=== PATIENT | female | born 1995 | race African-American/Black ===

== ENCOUNTER 2016-10-30 14:34 | Emergency (ER) | payer MEDICAID ==
[~2016-10-30] VITALS: Ht 162.6 cm; Wt 68.0 kg
[2016-10-30 14:39] VITALS: BP 122/79; PULSE 74; RESP 15; TEMP 98.1; O2SAT 96
--- NOTE | 2016-10-30 16:19 | PD ---
HPI Chief Complaint: [employer] Problem/Complaint Time Seen by Provider: 16:10 Travel History International Travel<30 days: No Contact w/Intl Traveler<30days: No Traveled to known affect area: No History of Present Illness HPI 21-year-old female presents for evaluation of vaginal irritation, itchiness, discharge. Symptoms started 3 weeks ago. She thought that she may have a yeast infection and so she has been using [id number] antifungal creams but symptoms persisted which prompted evaluation. She reports that she has never been sexually active. She denies any dysuria, increased urinary frequency or hesitancy, abdominal pain, nausea or vomiting, fevers, flank pain. No other complaints. PFSH Past Medical History Medical History: Denies Significant Hx ?: Unknown LMP: AUG 2016 Social History Alcohol Use: No Tobacco Use: No Allergies-Medications (Allergen,Severity, Reaction): Coded Allergies: No Known Allergies (Unverified , 10/30/16) Reported Meds & Prescriptions Reported Meds & Active Scripts Active No Active Prescriptions or Reported Medications Review of Systems Except as stated in HPI: all other systems reviewed are Neg Physical Exam Narrative GENERAL: Well-developed well-nourished female in no acute distress SKIN: Warm and dry. HEAD: Atraumatic. Normocephalic. EYES: Pupils equal and round. No scleral icterus. No injection or drainage. ENT: No nasal bleeding or discharge. Mucous membranes pink and moist. NECK: Trachea midline. No JVD. CARDIOVASCULAR: Regular rate and rhythm. No murmur appreciated. RESPIRATORY: No accessory muscle use. Clear to auscultation. Breath sounds equal bilaterally. GASTROINTESTINAL: Abdomen soft, non-tender, nondistended. Pelvic examination performed in the presence of a female nurse: There is some thick white vaginal discharge in the vaginal canal. There is no cervical motion tenderness, adnexal tenderness. Data Data Last Documented VS Vital Signs Date Time Temp Pulse Resp B/P Pulse Ox O2 Delivery O2 Flow Rate FiO2 10/30/16 14:39 98.1 74 15 122/79 96 Orders Gc And Chlamydia Pcr (10/30/16 16:16) Wet Prep Profile (10/30/16 16:16) Ed Urine Pregnancytest Poc (10/30/16 16:16) Labs Laboratory Tests Test 10/30/16 16:25 Clue Cells (Wet Prep) NONE SEEN Vaginal Trichomonas (Wet Prep) NONE SEEN Vaginal Yeast (Wet Prep) NONE SEEN MDM Medical Decision Making Medical Screen Exam Complete: Yes Emergency Medical Condition: Yes Medical Record Reviewed: Yes Differential Diagnosis Bacterial vaginosis, candidiasis, cervicitis, trichomoniasis Narrative Course 21-year-old female with 3 weeks of vaginal itching, irritation, discharge. She reports she has never been sexually active. She has been using over-the- counter antifungal creams but symptoms persist. I offered the patient a choice of examination with wet prep, GC probe versus empiric treatment for candidiasis vaginitis versus bacterial vaginosis and she would prefer pelvic examination. Therefore pelvic examination is performed and wet prep, GC probe and urine test were ordered. The patient's wet prep and urine test were negative but given the examination findings of white malodorous vaginal discharge I'm going to treat the patient empirically for bacterial vaginosis versus vaginitis with single dose of fluconazole and 70 course of Flagyl. Diagnosis Primary Impression: Vaginal discharge Additional Instructions: Medication as prescribed. Follow-up with primary care physician as needed. Return for any emergent medical conditions. Med/Other Pt SpecificInfo: Prescription(s) given Scripts Metronidazole (Flagyl)500 Mg Oik000 Mg PO BID 7 Days Ref 0 Prov:Kehinde Bill MD 10/30/16 Fluconazole 150 Mg [id number] Mg PO ONCE #1 TAB Ref 0 Prov:Kehinde Bill MD 10/30/16 Disposition: 01 DISCHARGE HOME Condition: Stable Nacho Nur Oct 30, 2016 16:19
[2016-10-30] MEDS ORDERED: FLUC150T PO (17:09)
[2016-10-30] MEDS ORDERED: METR-1 PO (17:09)
[2016-10-30 18:32] LABS: CHLAMYDIA PCR NOT DETECTED (NOT DETECT); NEISSERIA PCR NOT DETECTED (NOT DETECT)
== END 2016-10-30 17:24 | disposition home or self-care (01) ==
LOC: NETRI 14:34
DX: N89.8 Other specified noninflammatory disorders of vagina (principal)
CPT/HCPCS: 84703; 87210; 87491; 87591; 99283

== ENCOUNTER 2017-10-06 15:20 | Emergency (ER) | payer SELFPAY ==
[~2017-10-06] VITALS: Ht 162.6 cm; Wt 77.3 kg
[~2017-10-06 15:20] MED LIST: FLUC150T PO; METR-1 PO
[2017-10-06 15:22] VITALS: BP 128/72; PULSE 79; RESP 14; TEMP 97.5; O2SAT 97
[2017-10-06] MEDS ORDERED: ONDANSETRON HCL 4 MG/2 ML VIAL IM ONE (16:00)
[2017-10-06 16:44] LABS: AUTOMATED NEUTROPHIL # 3.3 TH/MM3 (1.8-7.7); BASOPHIL # 0.1 TH/MM3 (0-0.2); BASOPHIL % 1.6 % (0.0-2.0); EOSINOPHIL % 0.7 % (0.0-4.0); HEMOGLOBIN 14.2 GM/DL (11.6-15.3); LYMPH % 27.1 % (9.0-44.0); LYMPHOCYTE # 1.3 TH/MM3 (1.0-4.8); MEAN CORPUSCULAR HEMOGLOBIN 27.8 PG (27.0-34.0); MEAN CORPUSCULAR HGB CONC 33.1 % (32.0-36.0); MEAN PLATELET VOLUME 8.4 FL (7.0-11.0); MONO % 4.7 % (0.0-8.0); MONOCYTE # 0.2 TH/MM3 (0-0.9); NEUT % 65.9 % (16.0-70.0); PLATELET COUNT 280 TH/MM3 (150-450); RED BLOOD COUNT 5.12 MIL/MM3 (4.00-5.30); RED CELL DISTRIBUTION WIDTH 14.1 % (11.6-17.2)
--- NOTE | 2017-10-06 16:56 | PD ---
HPI Chief Complaint: GI Complaint Time Seen by Provider: 16:55 Travel History International Travel<30 days: No Contact w/Intl Traveler<30days: No Traveled to known affect area: No History of Present Illness HPI 22-year-old Afro-[place] female presents the emergency department with sudden onset abdominal pain, cramping, and nausea with vomiting since awakening this morning. Patient denies fever but has had the chills. She's had decreased urine output. Patient denies . Patient has no upper respiratory symptoms. No cough or chest pain. Patient denies diarrhea. Pain is diffuse. Patient admits to going out to dinner with her friend for her birthday republican last evening and having excessive amount of alcohol. Not recall much alcohol she drank. She has no known drug allergies. Labs ordered and triage including CBC, CMP, urinalysis, and urine which was negative. PFSH Past Medical History ?: Not Social History Alcohol Use: No Tobacco Use: No Allergies-Medications (Allergen,Severity, Reaction): Coded Allergies: No Known Allergies (Unverified Adverse Reaction, Unknown, 10/06/17) Reported Meds & Prescriptions Reported Meds & Active Scripts Active Zofran (Ondansetron HCl) 4 Mg Tab 4 Mg PO Q6HR PRN Review of Systems Except as stated in HPI: all other systems reviewed are Neg General / Constitutional: Positive: Chills, No: Fever Eyes: No: Visual changes HENT: No: Headaches Cardiovascular: No: Chest Pain or Discomfort Respiratory: No: Shortness of Breath Gastrointestinal: Positive: Nausea, Vomiting, Abdominal Pain, Loss of Appetite , No: Diarrhea, Hematemesis, Hematochezia, Constipation, Indigestion, Dysphagia Genitourinary: Positive: Decreased Urinary Output, No: Urgency, Frequency, Dysuria, Discharge, Vaginal Bleeding Musculoskeletal: No: Pain Skin: No Rash Neurologic: No: Weakness Psychiatric: No: Depression Endocrine: No: Polydipsia Hematologic/Lymphatic: No: Easy Bruising Physical Exam Narrative GENERAL: Patient appears in mild to moderate distress. SKIN: Warm and dry. Normal color. Decreased turgor. HEAD: Atraumatic. Normocephalic. EYES: Pupils equal and round. No scleral icterus. No injection or drainage. ENT: No nasal bleeding or discharge. Mucous membranes pink and somewhat dry. Pharynx is clear. Airway is patent. NECK: Trachea midline. No JVD. Supple and nontender. CARDIOVASCULAR: Regular rate and rhythm. RESPIRATORY: No accessory muscle use. Clear to auscultation. Breath sounds equal bilaterally. GASTROINTESTINAL: Abdomen soft, mild diffuse tenderness, nondistended. No point tenderness or rebound. No CVA tenderness. Hepatic and splenic margins not palpable. MUSCULOSKELETAL: Extremities without clubbing, cyanosis, or edema. No obvious deformities. NEUROLOGICAL: Awake and alert. No obvious cranial nerve deficits. Motor grossly within normal limits. Five out of 5 muscle strength in the arms and legs. Normal speech. PSYCHIATRIC: Appropriate mood and affect; insight and judgment normal. Data Data Last Documented VS Vital Signs Date Time Temp Pulse Resp B/P (MAP) Pulse Ox O2 Delivery O2 Flow Rate FiO2 10/06/17 17:26 74 15 124/77 (93) 97 Room Air 10/06/17 15:22 97.5 Orders Orders Complete Blood Count With Diff (10/06/17 15:36) Comprehensive Metabolic Panel (10/06/17 15:36) Lipase (10/06/17 15:36) Urinalysis - C+S If Indicated (10/06/17 15:36) Ed Urine Pregnancytest Poc (10/06/17 15:36) Ondansetron Inj (Zofran Inj) (10/06/17 16:00) Iv Access Insert/Monitor (10/06/17 17:01) Ecg Monitoring (10/06/17 17:01) Oximetry (10/06/17 17:01) Ondansetron Inj (Zofran Inj) (10/06/17 17:15) Sodium Chlor 0.9% 1000 Ml Inj (Ns 1000 M (10/06/17 17:01) Sodium Chloride 0.9% Flush (Ns Flush) (10/06/17 17:15) Famotidine Inj (Pepcid Inj) (10/06/17 17:15) Influenzae A/B Antigen (10/06/17 17:01) Labs Laboratory Tests Test 10/06/17 16:01 White Blood Count 5.0 TH/MM3 Red Blood Count 5.12 MIL/MM3 Hemoglobin 14.2 GM/DL Hematocrit 43.0 % Mean Corpuscular Volume 84.0 FL Mean Corpuscular Hemoglobin 27.8 PG Mean Corpuscular Hemoglobin Concent 33.1 % Red Cell Distribution Width 14.1 % Platelet Count 280 TH/MM3 Mean Platelet Volume 8.4 FL Neutrophils (%) (Auto) 65.9 % Lymphocytes (%) (Auto) 27.1 % Monocytes (%) (Auto) 4.7 % Eosinophils (%) (Auto) 0.7 % Basophils (%) (Auto) 1.6 % Neutrophils # (Auto) 3.3 TH/MM3 Lymphocytes # (Auto) 1.3 TH/MM3 Monocytes # (Auto) 0.2 TH/MM3 Eosinophils # (Auto) 0.0 TH/MM3 Basophils # (Auto) 0.1 TH/MM3 CBC Comment DIFF FINAL Differential Comment Urine Color YELLOW Urine Turbidity HAZY Urine pH 7.5 Urine Specific [place] 1.021 Urine Protein 30 mg/dL Urine Glucose (UA) NEG mg/dL Urine Ketones NEG mg/dL Urine Occult Blood SMALL Urine Nitrite NEG Urine Bilirubin NEG Urine Urobilinogen LESS THAN 2.0 MG/DL Urine Leukocyte Esterase NEG Urine RBC 2 /hpf Urine WBC 3 /hpf Urine Squamous Epithelial Cells 3 /hpf Urine Bacteria RARE /hpf Urine Mucus MOD /lpf Microscopic Urinalysis Comment CULT NOT INDICATED Blood Urea Nitrogen 10 MG/DL Creatinine 0.81 MG/DL Random Glucose 100 MG/DL Total Protein 8.6 GM/DL Albumin 4.2 GM/DL Calcium Level 9.0 MG/DL Alkaline Phosphatase 95 U/L Aspartate Amino Transf (AST/SGOT) 28 U/L Alanine Aminotransferase (ALT/SGPT) 53 U/L Total Bilirubin 0.4 MG/DL Sodium Level 139 MEQ/L Potassium Level 4.0 MEQ/L Chloride Level 106 MEQ/L Carbon Dioxide Level 24.8 MEQ/L Anion Gap 8 MEQ/L Estimat Glomerular Filtration Rate 108 ML/MIN Lipase 149 U/L [facility] Medical Decision Making Medical Screen Exam Complete: Yes Emergency Medical Condition: Yes Differential Diagnosis Nausea and vomiting. Gastritis. Alcohol overdose. Possible influenza. Narrative Course Patient appears medically stable at time of exam. Labs ordered were CBC, CMP, urinalysis, urine and influenza IV access is obtained patient is given 2 L normal saline bolus as well as 4 mg Zofran IV as well as 20 mg Pepcid IV. CBC is unremarkable. CMP is unremarkable. Urinalysis has some small amount of protein, small occult blood, no signs of acute infection. Patient feels much improved after the above treatment. Condition discharged home with Zofran 4 mg every 6 hours #12. Plan diet recommended. Limited EtOH intake. Follow-up if symptoms do not continue to improve or worsen as needed. Diagnosis Primary Impression: Gastritis due to alcohol without hemorrhage Qualified Codes: K29.20 - Alcoholic gastritis without bleeding Additional Impression: Nausea and vomiting Qualified Codes: R11.2 - Nausea with vomiting, unspecified Referrals: [facility] Patient Instructions: Acute Nausea and Vomiting (ED), Diet for Stomach Ulcers and Gastritis (ED), General Instructions Departure Forms: School Release Return to School Date: Oct 07, 2017 Additional Instructions: CBC is unremarkable. CMP is unremarkable. Urinalysis has some small amount of protein, small occult blood, no signs of acute infection. Patient feels much improved after the above treatment. Condition discharged home with Zofran 4 mg every 6 hours #12. Plan diet recommended. Limited EtOH intake. Follow-up if symptoms do not continue to improve or worsen as needed. Med/Other Pt SpecificInfo: Prescription(s) given Scripts Ondansetron (Zofran) 4 Mg Tab 4 MG PO Q6HR Y for NAUSEA OR VOMITING, #12 TAB 0 Refills Prov: Brandon Osman MD 10/06/17 Disposition: 01 DISCHARGE HOME Condition: Stable Tahir Ulloa Oct 06, 2017 16:56
[2017-10-06 16:59] LABS: ALBUMIN 4.2 GM/DL (3.4-5.0); ALT (GPT) 53 U/L (10-53); AST (GOT) 28 U/L (15-37); BICARBONATE 24.8 MEQ/L (21.0-32.0); BLOOD UREA NITROGEN 10 MG/DL (7-18); CHLORIDE 106 MEQ/L (98-107); CREATININE 0.81 MG/DL (0.50-1.00); GLOMERULAR FILTRATION RATE 108 ML/MIN (>89); GLUCOSE,RANDOM 100 MG/DL (74-106); LIPASE 149 U/L (73-393); SODIUM (NA) 139 MEQ/L (136-145)
[2017-10-06 17:01] LABS: ALKALINE PHOSPHATASE 95 U/L (45-117); TOTAL BILIRUBIN ADULT 0.4 MG/DL (0.2-1.0); TOTAL PROTEIN 8.6 GM/DL (6.4-8.2)
[2017-10-06 17:06] LABS: BACTERIA, URINE RARE /hpf; BILIRUBIN, URINE NEG (NEG); BLOOD, URINE SMALL (NEG); GLUCOSE,URINE NEG (NEG); KETONE, URINE NEG (NEG); MUCUS URINE MOD /lpf (OCC); NITRITE,URINE NEG (NEG); PH, URINE 7.5 (5.0-8.5); SQUAMOUS EPITHELIAL CELL URINE 3 /hpf (0-5); URINE COLOR YELLOW (YELLW/STRAW); URINE LEUKOCYTE ESTERASE NEG (NEG)
[2017-10-06] MEDS ORDERED: ONDANSETRON HCL 4 MG/2 ML VIAL IVP ONE (17:15)
[2017-10-06] MEDS ORDERED: SODIUM CHLORIDE 0.9% FLUSH 10 ML FLUSH IV FLUSH PRN (17:15)
[2017-10-06] MEDS ORDERED: FAMOTIDINE 20 MG/2 ML VIAL IV PUSH ONE (17:15)
[2017-10-06] MEDS: SODIUM CHLOR 0.9% 1000 ML INJ 1,000 ML IV SCH ×2 (17:22→18:03)
[2017-10-06 17:26] VITALS: BP 124/77; PULSE 74; RESP 15; O2SAT 97; O2SAT 98
[2017-10-06] MEDS ORDERED: ZOFR4TAB PO (18:06)
== END 2017-10-06 18:44 | disposition home or self-care (01) ==
LOC: NEPD 15:20
DX: K29.20 Alcoholic gastritis without bleeding (principal)
CPT/HCPCS: 80053; 81001; 83690; 84703; 85025; 87804; 96361; 96372; 96374; 96375; 99284; J2405; J7030